=== PATIENT | female | born 1985 | race Caucasian/White ===

== ENCOUNTER 2021-01-11 13:35 | Emergency (ER) | payer OTHER ==
[2021-01-11 14:42] LABS: RED BLOOD COUNT 5.06 M/UL (4.00-5.10); WHITE BLOOD COUNT 7.4 K/UL (4.5-11.0)
[2021-01-11 15:18] LABS: BUN/CREATININE RATIO 18 (0-10)
[2021-01-11] MEDS ORDERED: TRANSDERM-SCOP1 EACH TOP (17:47)
[2021-01-11] MEDS ORDERED: CEFUROXIME500 MG PO (17:47)
== END 2021-01-11 21:30 | disposition home or self-care (01) ==
LOC: ER1 13:35
PROVIDERS: Physician Assistant
DX: O98.512 Other viral diseases complicating pregnancy, second trimester (principal); U07.1 COVID-19; O23.42 Unspecified infection of urinary tract in pregnancy, second trimester
CPT/HCPCS: 80053; 81001; 85025; 96374; 99284; J0696; J7030; U0002